=== PATIENT | female | born 2000 | race Caucasian/White ===

== ENCOUNTER 2022-02-14 09:22 | Emergency (ER) | payer OTHER ==
[~2022-02-14] VITALS: Ht 177.8 cm; Wt 100.0 kg
[2022-02-14 09:53] LABS: COLLECTION METHOD CLEAN CATCH
[2022-02-14 10:03] VITALS: TEMP 99.5
[2022-02-14 10:12] LABS: URINE APPEARANCE Clear (CLEAR/HAZY); URINE BLOOD 2+ (NEGATIVE); URINE COLOR Yellow (YELLOW); URINE GLUCOSE Negative (NEGATIVE); URINE KETONE Negative (NEGATIVE); URINE NITRATE Negative (NEGATIVE); URINE PROTEIN(semi-quant) Negative (NEGATIVE); URINE UROBILINOGEN 0.2 E.U/dL (0.2-1.0)
[2022-02-14 10:13] LABS: BASO % 0.4 % (0.0-2.0); EOS # 0.1 K/mm3 (0.0-0.7); EOS % 0.5 % (0.0-4.0); GRAN % 62.1 % (42.2-75.2); HEMATOCRIT 40.9 % (35.0-45.0); LYMPH # 2.8 K/mm3 (1.2-3.4); LYMPH % 28.7 % (20.0-51.0); MEAN CELL VOLUME 86 fl (80.0-95.0); MEAN CORPUSCULAR HEMOGLOBIN 27 pg (26-32); MEAN CORPUSCULAR HGB CONC 32 g/dl (33.0-37.0); MEAN PLATELET VOLUME 10.6 fl (7.4-10.4); MONO # 0.8 K/mm3 (0.1-0.6); MONO % 8.1 % (1.7-9.3); PLATELET COUNT 293 K/mm3 (130-400); RED BLOOD COUNT 4.77 M/mm3 (4.10-5.30); REDCELL DISTRIBUTION WIDTH-CV 13.7 % (11.5-14.5)
[2022-02-14 10:14] LABS: SQUAMOUS EPITHELIAL None Seen /hpf (0-10); URINE BACTERIA Rare /hpf (NONE SEEN); URINE RBC 0-2 /hpf (0-2)
[2022-02-14 10:32] LABS: ALBUMIN 4.3 gm/dL (3.5-5.0); BILIRUBIN,TOTAL 0.5 mg/dL (0.2-1.2); C-REACTIVE PROTEIN 0.68 mg/dL (0.00-0.50); CALCIUM 9.4 mg/dL (8.4-10.2); CREATININE, serum 0.69 mg/dL (0.57-1.11); POTASSIUM 3.3 mmol/L (3.5-4.5); TOTAL PROTEIN 7.6 gm/dL (6.2-8.1)
[2022-02-14] MEDS ORDERED: OMNICEF 300MG300 MG PO (10:59)
[2022-02-14 11:17] VITALS: BP 137/79; PULSE 99
== END 2022-02-14 11:26 | disposition home or self-care (01) ==
LOC: COL.ER 09:22
PROVIDERS: Family Medicine
DX: N30.90 Cystitis, unspecified without hematuria (principal); Z20.822 Contact with and (suspected) exposure to COVID-19
CPT/HCPCS: J2405; J7120

== ENCOUNTER 2024-04-25 07:11 | Emergency (ER) | payer OTHER ==
[~2024-04-25] VITALS: Ht 177.8 cm; Wt 100.0 kg
[~2024-04-25 07:11] MED LIST: CEPHALEXIN500 M1 PO; OMNICEF 300MG300 MG PO; PERCOCET 325 MG1 TA2 PO; QUALITY CHOI500 U/GM TOP
[2024-04-25 07:48] VITALS: BP 107/63; TEMP 98.6
[2024-04-25] MEDS ORDERED: DOXYCYCLINE HY100 MG PO (10:50)
[2024-04-25 11:22] VITALS: PULSE 83
== END 2024-04-25 11:22 | disposition home or self-care (01) ==
LOC: COL.ER 07:11
DX: L03.211 Cellulitis of face (principal)